=== PATIENT | female | born 1955 | race Caucasian/White ===

== ENCOUNTER → 2017-04-07 | Outpatient (CLI) | payer BC ==
[~2017-04-07] MED LIST: LIDOCAINE 1% 300 MG/30 ML SDV ONE
[2017-04-07 12:01] LABS: PROTEIN, CSF 21 mg/dL (12-60)
[2017-04-07 12:08] LABS: CSF APPEARANCE CLEAR (CLEAR); CSF COLOR COLORLESS (COLORLESS); WBC, CSF 0 /mm3 (0-5)
[2017-04-07 12:21] LABS: CSF APPEARANCE CLEAR (CLEAR); CSF COLOR COLORLESS (COLORLESS); WBC, CSF 0 /mm3 (0-5)
[2017-04-07 16:08] LABS: GLUCOSE 82 mg/dL (70-100)
[2017-04-08 15:17] LABS: VDRL CSF Negative (Negative)
[2017-04-08 19:18] LABS: HSV 1 PCR, CSF Negative (Negative); HSV 2 PCR, CSF Negative (Negative)
[2017-04-08 22:57] LABS: CMVRU RESULT Negative (Negative); CMVRU SPECIMEN SOURCE CSF
[2017-04-09 09:37] LABS: ALBUMIN CSF 8.4 mg/dL (<=27.0); ALBUMIN SERUM 4480 mg/dL; IGG SERUM 1060 mg/dL (767 - 1590); IGG/ALBUMIN CSF 0.12 (<=0.21); IGG/ALBUMIN SERUM 0.24 (<=0.40)
[2017-04-09 13:37] LABS: EBV BY PCR FLUID Negative (Negative); EBV FLUID SOURCE SPINAL FLUID
[2017-04-09 14:04] LABS: INTERPRETATION 0 bands (<4); OLIGOCLONAL BANDING CSF 1 bands; OLIGOCLONAL BANDING SERUM 1 bands
[2017-04-15 10:06] LABS: MISCELLANEOUS TEST See Comments
== END ==
LOC: FIMAGING 08:43
PROVIDERS: ATTEND Psychiatry & Neurology Neurology
PROC: 009U3ZX Drainage of Spinal Canal, Percutaneous Approach, Diagnostic (ICD-10-PCS; principal; 2017-04-07)
DX: R56.9 Unspecified convulsions (principal); R41.3 Other amnesia
CPT/HCPCS: 82784-90; 82947-QW; 83916-90; 86592-90; 87496-90